=== PATIENT | female | born 1955 | race Caucasian/White ===

== ENCOUNTER 2018-01-23 18:25 | Inpatient (IN) | payer OTHER ==
[~2018-01-23] VITALS: Ht 160 cm; Wt 49.9 kg
[2018-01-23] MEDS ORDERED: BENZ2TAB7 PO (19:57)
[2018-01-23] MEDS ORDERED: CHOL200026 PO (19:57)
[2018-01-23] MEDS ORDERED: BENZ1TAB7 PO (19:57)
[2018-01-23] MEDS ORDERED: DENO60DI SQ (19:57)
[2018-01-23] MEDS ORDERED: HALO2TAB PO (19:57)
[2018-01-23] MEDS ORDERED: HALO100A2 IM (19:57)
[2018-01-23] MEDS ORDERED: MAG HYDROX/AL HYDROX/SIMETH 30 ML UDC PO PRN (20:00)
[2018-01-23] MEDS ORDERED: ACETAMINOPHEN 325 MG TABLET PO PRN (20:00)
[2018-01-23] MEDS ORDERED: LORAZEPAM 0.5 MG TABLET PO PRN (20:00)
[2018-01-23] MEDS ORDERED: MAGNESIUM HYDROXIDE 30 ML UDC PO PRN (20:00)
[2018-01-23] MEDS ORDERED: TEMAZEPAM 7.5 MG CAPSULE PO PRN (20:00)
[2018-01-23] MEDS ORDERED: LEVO75TA7 PO (20:10)
[2018-01-23] MEDS ORDERED: TOPI25TA49 PO (20:10)
[2018-01-23] MEDS ORDERED: PHEN100C4 PO (20:10)
[2018-01-23] MEDS ORDERED: PANT40TA2 PO (20:10)
[2018-01-23 21:39] VITALS: BP 130/82
--- NOTE | 2018-01-23 22:26 | NUR ---
ADMISSION NOTES ADMITTED THIS 62 Y/O FEMALE PATIENT ADMIT FROM [facility] / , PT. INTIALLY CAME FROM HOME. PT IS ON 5150 HOLD FOR GD , PER HOLD PT. IS NON COMPLIANT WITH MEDS AND POOR HYGIENE BIZARRE BEHAVIORAL CONFUSED, UPON FACE TO FACE ASSESSMENT PATIENT IS A&O X1 DEPRESSED ,CONFUSED, DISORGNIZED , PT. IS POOR HISTORIAN, POOR INSIGHT ,POOR JUDGEMENT , V/S WNL, NO ACUTE DISTRESS NOTED, PT. REFUSED TO SIGN ALL ADMISSION PAPERS AND PT. REFUSED TO TAKE SHOWERS ENCOURAGED FOR SHOWER STILL REFUSED, HX OF BIPOLAR DISORDER , PTSD, ANXIETY,HYPOTHYRODISM, SEIZURE DISORDER, GENERALIZED WEAKNESS, MD AWARE AND NOTIFIED OF THE ADMISSION, ENCOURAGED PT. VERBALIZED ANY FEELING CONCERN TO STAFF, ORIENT TO UNIT POLICY, WILL CONTINUE TO MONITOR FOR Q15 SAFETY AND BEHAVIOR.
[2018-01-23] MEDS: BENZTROPINE MESYLATE (1 MG) 1 MG TABLET PO SCH (23:30)
[2018-01-24] MEDS: PHENYTOIN EXTENDED RELEASE 100 MG CAPSULE PO SCH ×2 (00:06→21:09)
[2018-01-24 06:57] LABS: BASOPHILS # (AUTO) 0.1 /CMM (0.0-0.2); BASOPHILS % (AUTO) 0.5 % (0.0-2.0); EOSINOPHILS % (AUTO) 0.1 % (0.0-6.0); HEMATOCRIT 44 % (33-45); LYMPHOCYTES # (AUTO) 1.9 /CMM (0.8-4.8); LYMPHOCYTES % (AUTO) 18.8 % (20.0-44.0); MEAN CORPUSCULAR HGB CONC 34 g/dl (31.0-36.0); MEAN CORPUSCULAR VOLUME 98 fL (82-100); MONOCYTES # (AUTO) 0.9 /CMM (0.1-1.30); MONOCYTES % (AUTO) 9.1 % (2.0-12.0); NEUTROPHILS # (AUTO) 7.3 /CMM (1.8-8.9); NEUTROPHILS % (AUTO) 71.5 % (43.0-81.0); PLATELET COUNT (AUTO) 306 /CMM (150-450); RDW COEFFICIENT OF VARIATION 12.4 (11.5-15.0); RED BLOOD CELL COUNT(AUTO) 4.49 MIL/uL (4.0-5.2); WHITE BLOOD COUNT (AUTO) 10.2 K/uL (4.3-11.0)
[2018-01-24 07:14] LABS: ALBUMIN 4.1 g/dL (3.4-5.0); BILIRUBIN,TOTAL 0.3 mg/dL (0.2-1.0); CALCIUM, SERUM 8.9 mg/dL (8.5-10.1); CREATININE 0.6 mg/dL (0.6-1.3); POTASSIUM 3.9 mmol/L (3.5-5.1); TOTAL PROTEIN, SERUM 7.7 g/dL (6.4-8.2)
[2018-01-24 07:22] LABS: THYROID STIMULATING HORMONE 2.161 uIU/mL (0.358-3.74)
[2018-01-24 08:00] VITALS: BP 134/87
[2018-01-24 08:11] LABS: PHENYTOIN (DILANTIN) 8.5 ug/ml (10.0-20.0)
[2018-01-24] MEDS: BENZTROPINE MESYLATE (1 MG) 1 MG TABLET PO SCH ×2 (09:00→21:09)
[2018-01-24] MEDS: PANTOPRAZOLE 40 MG TABLET.DR PO SCH (09:55)
[2018-01-24] MEDS: LEVOTHYROXINE SODIUM 75 MCG TABLET PO SCH (09:55)
--- NOTE | 2018-01-24 13:03 | NUR ---
INITIAL DISCHARGE PLAN: Pt will be discharged home to [address] [facility] [id number] . KAITLYN spoke to pts Sven Lamb [phone] who agreed to discharge plan. KAITLYN will help for a safe and proper discharge in collaboration with .
--- NOTE | 2018-01-24 13:03 | NUR ---
SW spoke with pts Sven Lamb [phone] for collateral information.
[2018-01-24 16:00] VITALS: BP 128/79
[2018-01-24 19:35] VITALS: BP 129/80
[2018-01-24] MEDS: OLANZAPINE 5 MG/TAB.RAPDIS PO SCH (21:08)
[2018-01-25 08:00] VITALS: BP 120/60
[2018-01-25] MEDS: OLANZAPINE 5 MG/TAB.RAPDIS PO SCH ×2 (08:51→21:07)
[2018-01-25] MEDS: LEVOTHYROXINE SODIUM 75 MCG TABLET PO SCH (08:51)
[2018-01-25] MEDS: PANTOPRAZOLE 40 MG TABLET.DR PO SCH (08:51)
[2018-01-25] MEDS: BENZTROPINE MESYLATE (1 MG) 1 MG TABLET PO SCH ×3 (09:00→21:08)
[2018-01-25 16:00] VITALS: BP 120/76
[2018-01-25] MEDS: PHENYTOIN EXTENDED RELEASE 100 MG CAPSULE PO SCH (16:35)
--- NOTE | 2018-01-25 19:30 | NUR ---
RN NOTE; RECEIVED PT IN BED SLEEPING W/ THE SITTER AT THE BED SIDE. BREATHING EVENLY. NAD. REMAINED CALM AND QUIET AT THIS TIME W/ NO BEHAVIORAL ISSUES. WILL CONT TO MONITOR .
[2018-01-25 20:00] VITALS: BP 132/76
--- NOTE | 2018-01-26 06:36 | NUR ---
pt resting in bed comfortably. no acute event during the night, compliant w/ meds and POC. needs attended. cleaned and dried. under close monitoring for safety. will cont to monitor and will endorse to am shift for loretta .
[2018-01-26 08:00] VITALS: BP 140/88
[2018-01-26] MEDS: BENZTROPINE MESYLATE (1 MG) 1 MG TABLET PO SCH (09:22)
[2018-01-26] MEDS: PANTOPRAZOLE 40 MG TABLET.DR PO SCH (09:22)
[2018-01-26] MEDS: PHENYTOIN EXTENDED RELEASE 100 MG CAPSULE PO SCH (09:22)
[2018-01-26] MEDS: LEVOTHYROXINE SODIUM 75 MCG TABLET PO SCH (09:22)
[2018-01-26] MEDS: OLANZAPINE 5 MG/TAB.RAPDIS PO SCH (09:22)
--- NOTE | 2018-01-26 11:41 | NUR ---
DISCHARGE PLAN: Pt will be discharged at 1:00pm via private transportation home to [address], [place] [id number] . Pts mood and affect was confused and calm with limited communication. Pt denied homicidal/suicidal ideations and denied visual/auditory hallucinations. Pts Sven [phone] has been notified and will pick pt up and agrees with discharge home. 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 Pts will schedule follow up appointments with Hose Cementer: Dr. Aylin Feliz [address] [place] [id number] [phone] and Psychiatrist: Dr Anna Smith [address] [facility] [phone]. has faxed care coordiantion packet to Dr Anna Smith Dr [address] [facility] [phone]. The multidisciplinary exitcare form was done, printed, signed, and given to the patient. Addendum: 01/27/18 at 1537 by DAVID SAHNI DISCHARGE NOTE
--- NOTE | 2018-01-26 12:58 | NUR ---
RN NOTE DISCHARGE NOTE: PATIENT LEFT THE UNIT WITH CIRCUIT RIDER AT 1250. PATIENT MEDICALLY STABLE. DENIES SI/HI DURING DISCHARGE. DENIES COMMAND HALLUCINATIONS, VH, AND AH. IFEOMA GAVE DISCHARGE ORDER, DISCONTINUE HOLD, AND GAVE MED PRESCRIPTION. PACK CHANGER MADE AWARE OF DISCHARGE AND AGREES. PATIENT SIGNED EXIT CARE PAPERS. SKIN ASSESSMENT COMPLETE AND CLEAR. PATIENT'S BELONGINGS GIVEN AND SIGNED. EXIT CARE PAPERS EXPLAINED TO PATIENT AND .
== END 2018-01-26 12:50 | disposition home or self-care (01) | DRG 885 ==
LOC: GPS 18:25
PROVIDERS: ADMIT Psychiatry & Neurology Psychiatry; ATTEND Registered Nurse
DX: F31.9 Bipolar disorder, unspecified (principal); G40.909 Epilepsy, unspecified, not intractable, without status epilepticus; E03.9 Hypothyroidism, unspecified; Z73.6 Limitation of activities due to disability; F43.10 Post-traumatic stress disorder, unspecified; F41.9 Anxiety disorder, unspecified; F29 Unspecified psychosis not due to a substance or known physiological condition; Z79.899 Other long term (current) drug therapy
CPT/HCPCS: 36415; 80053-TC; 80061-TC; 80185-TC; 84443-TC; 85025-TC; 87081-TC; 97116-TC; 97530-TC